=== PATIENT | male | born 1945 | race Caucasian/White ===

== ENCOUNTER 2018-02-19 09:29 | Emergency (ER) | payer OTHER ==
[~2018-02-19] VITALS: Ht 167.6 cm; Wt 74.8 kg
[~2018-02-19 09:29] MED LIST: ASPIRIN EC81 M1 PO; FLEXERIL10 MG PO; LIPITOR40 M1 PO; METOPROLOL TART25 M1 PO; NORCO 325 MG-51 TAB PO; VITAMIN D1000 UNIT PO
[2018-02-19 09:36] VITALS: BP 118/72
--- NOTE | 2018-02-19 10:31 | ED UPPER/LOWER EXTREMITY COMPL ---
History of Present Illness General Chief Complaint: Shoulder Injury Stated Complaint: LEFT SHOULDER PAIN Source: patient Exam Limitations: no limitations Vital Signs & Intake/Output Vital Signs & Intake/Output Vital Signs Date Time Temp Pulse Resp B/P B/P Pulse O2 O2 Flow FiO2 Mean Ox Delivery Rate 02/19 0936 98.0 66 20 118/72 96 Room Air Allergies Uncoded Allergies: LOBSTER (Severe, FACIAL AND TONGUE SWELLING 07/23/14) Reconcile Medications Aspirin (Ecotrin*) 81 MG TABLET.DR 1 TAB PO DAILY HEART HEALTH (Reported) Atorvastatin Calcium (Lipitor) 40 MG TABLET 1 TAB PO DAILY CHOLESTEROL ( Reported) Azilsartan Medoxomil (Edarbi) 40 MG TABLET 1 TAB PO DAILY HEART (Reported) Cholecalciferol (Vitamin D3) (Vitamin D) 1,000 UNIT TABLET 1 TAB PO DAILY VITAMIN SUPPORT (Reported) Meloxicam (Mobic) 15 MG TABLET 1 TAB PO DAILY PRN pain Metoprolol Tartrate 25 MG TABLET 0.5 TAB PO BID HEART (Reported) Triage Note: PT TO ED C/O LEFT SHOULDER PAIN X A FEW WEEKS AFTER MOVING. DENIES OBVIOUS INJURY. HAS NOT TRIED OTC MEDS, DECLINING MEDS IN TRIAGE. Triage Nurses Notes Reviewed? yes Onset: Gradual Duration: week(s): Timing: recent history Severity: moderate Pain/Injury Location: Left: Shoulder. Modifying Factors: Worsens With: movement. HPI: 72Y/O MALE CAME IN TO THE ED WITH LEFT ANTERIOR SHOULDER PAIN FOR A FEW WEEKS. HE STATES THAT IT STARTED AFTER MOVING TO A NEW HOME AFTER HIS . PATIENT REPORTS HE WAS LIFTING HEAVY OBJECTS AT THAT TIME. HE DENIES ANY SPECIFIC PRECIPITATING EVENT TO CAUSE HIS PAIN AND LOSS OF ROM. HE STATES THAT HE CANNOT MOVE HIS ARM ABOVE SHOULDER HEIGHT AND HAS SOME PAIN DOWN TO HIS ELBOW IF HE TRIES TO MOVE IT. HE DENIES TAKING ANY MEDICATION TO HELP WITH THE PAIN AND STATES THAT HE THOUGHT IT WOULD GO AWAY WITH REST. HE DENIES CHEST PAIN, DYSPNEA, FALL. (Avelina MONIQUE,Tangela Morse) Past History Travel History Traveled to [place] past 21 day No Medical History Any Pertinent Medical History? see below for history Cardiovascular: hypertension, hyperlipidemia Surgical History Surgical History: non-contributory Psychosocial History What is your primary language Telugu Tobacco Use: Quit >30 days ago ETOH Use: denies use Illicit Drug Use: denies illicit drug use Family History Hx Contributory? No (Tangela Grimes) Review of Systems Review of Systems Constitutional: Reports: no symptoms. EENTM: Reports: no symptoms. Respiratory: Reports: no symptoms. Cardiovascular: Reports: no symptoms. Gastrointestinal/Abdominal: Reports: no symptoms. Genitourinary: Reports: no symptoms. Musculoskeletal: Reports: see HPI. Skin: Reports: no symptoms. Neurological/Psychological: Reports: no symptoms. Hematologic/Endocrine: Reports: no symptoms. Immunological: Reports: no symptoms. All Other Systems: Reviewed and Negative (Tangela Grimes) Physical Exam Physical Exam General Appearance: well developed/nourished, no apparent distress, alert, awake Head: atraumatic, normal appearance Eyes: Bilateral: normal appearance. Ears, Nose, Throat: hearing grossly normal Neck: normal inspection, supple, full range of motion Cardiovascular/Respiratory: normal peripheral pulses Peripheral Pulses: 2+ radial (R), 2+ radial (L) Back: normal inspection, normal range of motion Shoulder Left: ANTERIOR SHOULDER TENDERNESS WITHOUT DEFORMITY, ACTIVE ROM LIMITED, PASSIVE ROM INTACT Shoulder Right: normal range of motion, normal inspection Elbow Left: normal range of motion, normal inspection Elbow Right: normal range of motion, normal inspection Hand Left: normal inspection, normal range of motion Hand Right: normal inspection, normal range of motion Neurologic/Tendon: normal sensation, normal tendon functions Skin: intact, normal color, warm/dry (Tangela Grimes) Progress Differential Diagnosis: cellulitis, contusion, fracture, septic arthritis, sprain, tendon injury, ARTHRITIS Plan of Care: Current Medications Sig/Rajat Start time Last Medication Dose Stop Time Status Admin Ibuprofen 600 MG ONCE ONE 02/19 1230 UNVr (Motrin) 02/19 1231 Patient's left shoulder pain is reproducible on physical exam. X-ray shows osteoarthritis is present. This may be congestive reading to the patient's shoulder pain. Patient is also having difficulty with range of motion which may be related to his arthritis or possible ligamentous abnormality. Patient to follow-up with orthopedic doctor and begin RICE therapy. Symptoms are not consistent with ACS, they began after heavy lifting, are reproducible and associated with difficulty with ROM. Patient agrees with plan of care. Discussed with Dr. Altamirano who agrees with the plan. Diagnostic Imaging: Viewed by Me: Radiology Read. Discussed w/RAD: Radiology Read. Radiology Impression: PATIENT: LAMINE IRIZARRY PRESENT AGE: 72 PATIENT ACCOUNT NO: [id number] : 47 LOCATION: [facility] ORDERING PHYSICIAN: Tangela MONIQUE SERVICE DATE: 02/19/18 EXAM TYPE: RAD - XRY-SHOULDER COMPLETE-LEFT EXAMINATION: XR SHOULDER, LEFT CLINICAL INFORMATION: Left shoulder pain and decreased range of motion. COMPARISON: None TECHNIQUE: Left shoulder, 3 views FINDINGS: Alignment is normal at acromioclavicular and glenohumeral joints. No acute fracture or subluxation. Osteophytes are seen at the degenerated acromioclavicular joint and inferior aspect of the glenohumeral joint. The acromiohumeral distance is normal. The humeral head is well-positioned over the intact glenoid. No evidence of calcific tendinitis. The visualized left upper lung is clear. IMPRESSION: - No fracture or malalignment at the left shoulder. - [id number] osteoarthrosis of the acromioclavicular joint. - Mild osteoarthrosis of the glenohumeral joint. DICTATED BY: Jeff Dasilva MD DATE/TIME DICTATED:02/19/181148 GIS COORDINATOR:EDDIE DATE/TIME TRANSCRIBED:02/19/181148 CONFIDENTIAL, DO NOT COPY WITHOUT APPROPRIATE AUTHORIZATION. <Electronically signed in Other Vendor System> SIGNED BY: Jeff Dasilva MD 02/19/18 [id number] (Avelina MONIQUE,Tangela Morse) Departure Departure Disposition: HOME OR SELF CARE Condition: Stable Clinical Impression Primary Impression: Osteoarthritis Qualifiers: Osteoarthritis location: shoulder Osteoarthritis type: unspecified Laterality: left Qualified Code: M19.012 - Primary osteoarthritis, left shoulder Secondary Impressions: Shoulder pain Qualifiers: Chronicity: acute Laterality: left Qualified Code: M25.512 - Pain in left shoulder Referrals: Marine RIVAS,Ashwin Gutierrez MD,Tawanda Aguilar (PCP/Family) Additional Instructions: Take meloxicam as prescribed as needed for pain. Follow-up with orthopedic referral given to today. Apply ice intermittently. Return with worsening symptoms or concerns. Please note that there might be incidental findings in your evaluation that are unrelated to the current emergency department visit. Please notify your primary care doctor about this emergency department visit in order to obtain and review all of the testing performed so that these incidental findings can be monitored as needed. If you had an x-ray performed, please understand that some fractures may not be seen on the initial set of x-rays. If your symptoms persist you might need a repeat set of x-rays to check for such a fracture. If you had a laceration evaluated, please understand that foreign bodies such as glass or wood may not be visible to the naked eye or on plain x-rays. If the wound becomes red, swollen, increasingly more painful or if there is any drainage from the wound, please have it reevaluated by a physician for the possibility of a retained foreign body. If you're unable to follow up as outlined in the discharge instructions please return to the emergency department. Thank you for choosing the [facility] Emergency Department for your care. It was a pleasure to serve you today. Departure Forms: Customer Survey General Discharge Information Prescriptions: Current Visit Scripts Meloxicam (Mobic) 1 TAB PO DAILY PRN pain #15 TAB (Avelina MONIQUE,Tangela Morse) PA/FINISHED GOODS INSPECTOR Co-Sign Statement Statement: ED Attending supervision documentation- x I saw and evaluated the patient. I have also reviewed all the pertinent lab results and diagnostic results. I agree with the findings and the plan of care as documented in the PA's/FINISHED GOODS INSPECTOR's documentation. [] I have reviewed the ED Record and agree with the PA's/FINISHED GOODS INSPECTOR's documentation. [] Additions or exceptions (if any) to the PAs/FINISHED GOODS INSPECTOR's note and plan are summarized below: [] (Adarsh RIVAS,Stepan)
[2018-02-19] MEDS ORDERED: EDARBI40 M1 PO (11:09)
--- NOTE | 2018-02-19 11:55 | RADIOLOGY REPORT ---
EXAMINATION: XR SHOULDER, LEFT CLINICAL INFORMATION: Left shoulder pain and decreased range of motion. COMPARISON: None TECHNIQUE: Left shoulder, 3 views FINDINGS: Alignment is normal at acromioclavicular and glenohumeral joints. No acute fracture or subluxation. Osteophytes are seen at the degenerated acromioclavicular joint and inferior aspect of the glenohumeral joint. The acromiohumeral distance is normal. The humeral head is well-positioned over the intact glenoid. No evidence of calcific tendinitis. The visualized left upper lung is clear. IMPRESSION: - No fracture or malalignment at the left shoulder. - [id number] osteoarthrosis of the acromioclavicular joint. - Mild osteoarthrosis of the glenohumeral joint.
[2018-02-19] MEDS ORDERED: MOBIC15 M1 PO (12:26)
== END 2018-02-19 12:28 ==
LOC: ERH 09:29
DX: M19.012 Primary osteoarthritis, left shoulder (principal)
CPT/HCPCS: 73030-LT

== ENCOUNTER 2018-03-14 10:29 | Emergency (ER) | payer OTHER ==
[~2018-03-14] VITALS: Ht 170.2 cm; Wt 74.8 kg
[~2018-03-14 10:29] MED LIST changes: +EDARBI40 M1 PO; +MOBIC15 M1 PO
[2018-03-14 10:51] VITALS: BP 112/66
== END 2018-03-14 10:53 | disposition admitted as inpatient to this hospital (09) ==
LOC: ERH 10:29
DX: Z76.0 Encounter for issue of repeat prescription (principal)